=== PATIENT | male | born 1950 | race Caucasian/White ===

== ENCOUNTER → 2016-10-25 | Outpatient (CLI) | payer MEDICARE, BC ==
[~2016-10-25] MED LIST: ALEVE 220MG220 MG PO; ASPIRIN 32325 MG/TA1 PO; COZAAR 25MG25 MG/TAB PO; EPA FISH OIL1 SGL PO; FERROUSAL325 MG PO; FOLIC ACID0.4 MG PO; NORCO 325 MG-51 TAB PO; NORCO 325 MG-7.1 TAB PO; ROXICODONE 55 MG/TAB PO; VITAMIN C500 MG PO
[2016-10-25 12:07] LABS: HEMOGLOBIN 13.6 g/dl (13.5-18.0); MEAN CORPUSCULAR HEMOGLOBIN 42 pg (27.0-31.0); MEAN CORPUSCULAR HGB CONC 40 g/dl (33.0-37.0); MEAN PLATELET VOLUME 9.2 fl (7.4-10.4); PLATELET COUNT 227 K/mm3 (130-400); RED BLOOD COUNT 3.25 M/mm3 (4.20-5.60); WHITE BLOOD COUNT 9.8 K/mm3 (4.8-10.8)
[2016-10-25 12:23] LABS: HEMATOCRIT 33.9 % (42.0-52.0)
[2016-10-25 12:31] LABS: ERYTHROCYTE SEDIMENTATION RATE 18 mm/hr (0-30)
[2016-10-25 12:32] LABS: MEAN CELL VOLUME 104 fl (80.0-100.0)
== END ==
LOC: COL.LAB 11:23
PROVIDERS: Orthopaedic Surgery
DX: M79.89 Other specified soft tissue disorders (principal); M25.551 Pain in right hip

== ENCOUNTER 2016-10-26 09:42 | Inpatient (IN) | payer MEDICARE, BC ==
[~2016-10-26] VITALS: Ht 180.3 cm; Wt 95.5 kg
[2016-12-05] VITALS (9 sets, daily range): BP systolic 112–159; BP diastolic 63–73; PULSE 73–93; TEMP 97.4–98
[2016-12-05] MEDS ORDERED: COZAAR 25MG25 MG/TAB PO (09:13)
[2016-12-05] MEDS ORDERED: ALEVE 220MG220 MG PO (09:14)
[2016-12-05] MEDS ORDERED: EPA FISH OIL1 SGL PO (09:14)
[2016-12-05] MEDS ORDERED: VITAMIN C500 MG PO (09:15)
[2016-12-05] MEDS ORDERED: NORCO 325 MG-51 TAB PO (09:15)
[2016-12-05] MEDS ORDERED: FOLIC ACID0.4 MG PO (09:16)
[2016-12-05] MEDS ORDERED: FERROUSAL325 MG PO (09:16)
[2016-12-06] VITALS: BP 138/59; PULSE 89; TEMP 98.4
[2016-12-06 04:00] VITALS: BP 125/64; PULSE 77; TEMP 98.4
[2016-12-06 07:46] LABS: HEMATOCRIT 27.4 % (42.0-52.0); HEMOGLOBIN 11.5 g/dl (13.5-18.0)
[2016-12-06 08:12] VITALS: BP 142/59; PULSE 81; TEMP 98.1
[2016-12-06 11:49] VITALS: BP 138/52; PULSE 75; TEMP 98.6
[2016-12-06 15:24] VITALS: BP 118/52; PULSE 77; TEMP 98.1
[2016-12-06 20:00] VITALS: BP 132/54; PULSE 80; TEMP 98.4
[2016-12-07 04:00] VITALS: BP 135/60; PULSE 79; TEMP 98.4
[2016-12-07 05:54] LABS: HEMATOCRIT 22.4 % (42.0-52.0); HEMOGLOBIN 10.4 g/dl (13.5-18.0)
[2016-12-07 07:21] VITALS: BP 131/61; PULSE 84; TEMP 98.2
[2016-12-07 12:09] VITALS: BP 139/61; PULSE 89; TEMP 98.6
[2016-12-07] MEDS ORDERED: NORCO 325 MG-7.1 TAB PO (14:11)
[2016-12-07] MEDS ORDERED: ROXICODONE 55 MG/TAB PO (14:11)
[2016-12-07] MEDS ORDERED: ASPIRIN 32325 MG/TA1 PO (14:12)
== END 2016-12-07 14:15 | disposition home or self-care (01) | DRG 470 ==
LOC: JCC 12-05 07:42
PROVIDERS: Orthopaedic Surgery
PROC: 0SR90JA Replacement of Right Hip Joint with Synthetic Substitute, Uncemented, Open Approach (ICD-10-PCS; principal; 2016-12-05 13:05)
DX: M16.11 Unilateral primary osteoarthritis, right hip (principal); M87.351 Other secondary osteonecrosis, right femur
CPT/HCPCS: A4315; A9284; C1713; C1776; J0690; J1100; J2250; J2370; J2405; J2704; J3010; J7050; J7120

== ENCOUNTER → 2016-11-24 | Outpatient (CLI) | payer MEDICARE, BC ==
[2016-11-24 14:49] LABS: HIV 1/2 Antibodies Non-Reactive; HIV-1p24 Antigen Non-Reactive
== END ==
LOC: COL.LAB 13:35
PROVIDERS: Orthopaedic Surgery
DX: Z01.812 Encounter for preprocedural laboratory examination (principal)

== ENCOUNTER → 2016-11-28 | Outpatient (CLI) | payer MEDICARE, BC | LOC: COL.LAB 08:22 | DX: Z01.89 Encounter for other specified special examinations (principal) ==

== ENCOUNTER 2017-12-31 14:58 | Inpatient (IN) | payer MEDICARE, BC ==
[~2017-12-31] VITALS: Ht 180.3 cm; Wt 103.0 kg
[2018-02-26] VITALS (9 sets, daily range): BP systolic 101–149; BP diastolic 38–83; PULSE 65–76; TEMP 97–98.3
[2018-02-27 01:26] VITALS: BP 124/60; PULSE 80; TEMP 97.8
[2018-02-27 06:03] VITALS: BP 147/68; PULSE 83; TEMP 98.2
[2018-02-27 06:13] LABS: HEMOGLOBIN 13.4 g/dl (13.5-18.0)
[2018-02-27 06:24] LABS: HEMATOCRIT 28.5 % (42.0-52.0)
[2018-02-27 07:30] VITALS: BP 130/53; PULSE 86; TEMP 98.5
[2018-02-27 11:00] VITALS: BP 129/64; PULSE 88; TEMP 99
[2018-02-27 16:13] VITALS: BP 121/59; PULSE 79; TEMP 97.8
[2018-02-27 19:18] VITALS: BP 118/59; PULSE 80; TEMP 98.2
[2018-02-28 02:47] VITALS: BP 112/61; PULSE 85; TEMP 98.1
[2018-02-28] MEDS ORDERED: NORCO 325 MG-7.1 TAB PO (06:36)
[2018-02-28] MEDS ORDERED: ROXICODONE 55 MG/TAB PO (06:37)
[2018-02-28 07:24] VITALS: BP 134/70; PULSE 81; TEMP 99
[2018-02-28 11:25] VITALS: BP 137/62; PULSE 102; TEMP 97.2
== END 2018-02-28 13:10 | disposition home or self-care (01) | DRG 470 ==
LOC: JCC 02-18 14:30
PROVIDERS: Orthopaedic Surgery
PROC: 0SRB0JA Replacement of Left Hip Joint with Synthetic Substitute, Uncemented, Open Approach (ICD-10-PCS; principal; 2018-02-26 13:15)
DX: M16.12 Unilateral primary osteoarthritis, left hip (principal); M87.352 Other secondary osteonecrosis, left femur; Z96.641 Presence of right artificial hip joint; I10 Essential (primary) hypertension; E78.00 Pure hypercholesterolemia, unspecified; F17.220 Nicotine dependence, chewing tobacco, uncomplicated
CPT/HCPCS: A4314; A9284; C1713; C1776; J0690; J1100; J1885; J2250; J2405; J2704; J3010; J7120